=== PATIENT | female | born 1935 | race Caucasian/White ===

== ENCOUNTER 2016-08-03 10:31 | Emergency (ER) | payer OTHER ==
--- NOTE | 2016-08-03 10:43 | CPEKG ---
Heart Rate: 75 RR Interval: 800 P-R Interval: 172 QRSD Interval: 76 QT Interval: 368 QTC Interval: 411 P [place]: 62 QRS [place]: 26 T Wave [place]: -32 EKG Severity - ABNORMAL ECG - EKG Impression: SINUS RHYTHM EKG Impression: CONSIDER ANTEROSEPTAL INFARCT EKG Impression: BORDERLINE T ABNORMALITIES, INFERIOR LEADS Electronically Signed By: Rk Davis 03-Aug-2016 15:38:27
[2016-08-03 10:48] VITALS: RESP 16
[2016-08-03 11:02] LABS: % IMMATURE GRANULYOCYTES 0.4 % (0.0-1.1); ABSOLUTE IMMATURE GRANULOCYTES 0.03 10^3/uL (0.00-0.10); ADD DIFF? NO; ADD MORPH? NO; ADD SCAN? NO; ATYPICAL LYMPHOCYTE FLAG 20 (0-99); FRAGMENT RBC FLAG 0 (0-99); HEMATOCRIT 37.8 % (38.0-47.0); HEMOGLOBIN 13.4 g/dL (12.6-16.3); LEFT SHIFT FLG 0 (0-99); LIPEMIA HEMOLYSIS FLAG 90 (0-99); MEAN CELL HEMOGLOBIN CONCENTR. 35.4 g/dL (32.4-36.7); MEAN CELL VOLUME 90.2 fL (81.5-99.8); MEAN PLATELET VOLUME 9.3 fL (8.7-11.7); PLATELET CLUMPS FLAG 10 (0-99); PLATELET COUNT 255 10^3/uL (150-400); RED BLOOD CELL COUNT 4.19 10^6/uL (4.18-5.33)
[2016-08-03 11:15] LABS: INR 0.88 (0.83-1.16); PROTIME(PATIENT) 11.8 SEC (12.0-15.0)
[2016-08-03 11:16] LABS: APTT 29.7 SEC (23.0-38.0)
[2016-08-03 11:18] LABS: ANION GAP 8 mEq/L (8-16); CALCIUM 9.1 mg/dL (8.5-10.4); CARBON DIOXIDE 27 mEq/l (22-31); CHLORIDE 95 mEq/L (97-110); CREATININE 0.8 mg/dL (0.6-1.0); GLOMERULAR FILTRATION RATE > 60; GLUCOSE 91 mg/dL (70-100); POTASSIUM 4.1 mEq/L (3.5-5.2); SODIUM 130 mEq/L (134-144)
[2016-08-03 11:29] LABS: TROPONIN I < 0.012 ng/mL (0-0.034)
[2016-08-03 11:37] VITALS: O2SAT 94
--- NOTE | 2016-08-03 11:54 | DX ---
Chest, PA and Lateral Views - August 03, 2016, at 11:23 a.m. Clinical History: 80-year-old female with chest pain. Comparison Study: Chest, dated July 27, 2011. Findings: Arthrodesis hardware is seen along the caudal portion of the image involving the lumbar sp ine. There is a mild sigmoid-shaped thoracic scoliosis. Telemetry monitoring lead lines are present. The patient has had a prior augmentation mammoplasty, and there is fibrous capsular calcification on the right. There is mural calcification of the aortic knob. The cardiac size is within normal limits. There is a calcified granulomata at the left hilum and at the inferomedial right lung base. There is a mild pectus excavatum deformity. The thoracic vertebral body heights are maintained. There is some linear scarring at the lateral left lung base, which is unchanged from 2011. Impression: Radiographically similar to July 27, 2011.
[2016-08-03 12:37] VITALS: BP 126/75; PULSE 67; TEMP 97.5
--- NOTE | 2016-08-03 12:37 | UCPHY ---
H & P Patient Type: Established Chief Complaint Nursing Narrative: C/o epigastric/midsternal chest pain that radiates to back starting last night at 2100. Denies SOB. Pt states she has been having high BP over last week and is being treated by Dr. Aaron. Time Seen by Provider: 08/03/16 10:50 HPI/ROS: This patient had an episode of chest pain last night that prompts her visit this morning. She explains that while at rest she developed substernal chest pressure that radiated to her back became moderate to severe. It was associated with nausea and no other associated symptoms. During the episode which started at rest she noted no exacerbating or alleviating factors. The symptoms resolved without specific intervention. She has had no symptoms since but after mentioning the episode to her friend-a retired RN she decided to come in for further evaluation. At the moment she has no chest pain or other acute symptoms. However she did notice that she has hypertension with a blood pressure of 172/98 at home. She took a dose of Valium as well as reporting compliance with her antihypertensives-hydrochlorothiazide 12.5 a day, Diovan 320 mg a day and atenolol 100 mg a day. She explains that she often has improvement in her hypertension with Valium because she reports that she gets anxious at times. ROS: She reports no fevers chills or other constitutional symptoms. HEENT: No headache or other complaints pulmonary: No pleuritic pain, cough or shortness of breath. Cardiovascular: She reports no heart palpitations or lightheadedness. No peripheral edema. GI: No nausea vomiting, 10 point ROS is otherwise negative. Source: Patient Exam Limitations: No limitations - Personal History Current Tetanus Diphtheria and Acellular Pertussis (TDAP): Yes Tetanus Vaccine Date: within 10 years - Medical/Surgical History PMH: She reports having had 2 similar episodes in her life 1 at age 51 and 1 5 years ago in her was dying. She had a negative workup [address] Dejesus of Cardiology including a negative stress test and normal echo at that time per her report. Hx Asthma: No Hx Chronic Respiratory Disease: No Hx Diabetes: Yes Hx Cardiac Disease: Yes Hx Renal Disease: No Hx Cirrhosis: No Hx Alcoholism: No Hx HIV/AIDS: No Hx Splenectomy or Spleen Trauma: No Other PMH: hypothyroid, HTN, chronic pain, L3-L4 FUSION, RHIP REPLACED, breast infection, lyme disease, arthritis - Family History Significant Family History: No pertinent family hx - Social History Smoking Status: Never smoked Alcohol Use: None Drug Use: None - Physical Exam Exam: General Appearance: Pleasant elderly female appears younger than her stated age. Alert, no distress. Eyes: Pupils equal and round no pallor or injection. ENT, Mouth: Mucous membranes moist. Respiratory: There are no retractions, lungs are clear to auscultation. Cardiovascular: Regular rate and rhythm. No murmur gallop rub. No peripheral edema. No JVD. Gastrointestinal: Abdomen is soft and nontender, no masses, bowel sounds normal. Neurological: Alert with no focal deficits. Skin: Warm and dry, no rashes. Musculoskeletal: Neck is supple nontender. Extremities are symmetrical, full range of motion. Psychiatric: Mood and affect normal. DIFFERENTIAL DIAGNOSIS: After history and physical exam differential diagnosis was considered for coronary syndrome, thoracic aneurysm or dissection, pneumonia , pneumothorax, GERD Constitutional: Initial Vital Signs Temperature (C) 36.8 C 08/03/16 10:44 Heart Rate 78 08/03/16 10:44 Respiratory Rate 16 08/03/16 10:44 Blood Pressure 159/106 H 08/03/16 10:44 O2 Sat (%) 95 08/03/16 10:44 O2 Delivery Mode Room Air Allergies/Adverse Reactions: aspirin [Aspirin] Allergy (Severe, Verified 08/03/16 10:51) EYES SWELL,RASH ciprofloxacin [From Cipro] Allergy (Severe, Verified 08/03/16 10:51) HYPERTENSION, CONFUSED ciprofloxacin HCl [From Cipro] Allergy (Severe, Verified 08/03/16 10:51) HYPERTENSION, CONFUSED clindamycin [Clindamycin] Allergy (Severe, Verified 08/03/16 10:51) RED BLOTCHES, DIARRHEA tramadol HCl [From Ultram] Allergy (Severe, Verified 08/03/16 10:51) Vomiting ketorolac tromethamine [From Toradol] Allergy (Intermediate, Verified 08/03/16 10:51) BLOTCHY SKIN, EYES SWELL Penicillins Allergy (Intermediate, Verified 08/03/16 10:51) EYES SWELL, RASH vancomycin Allergy (Intermediate, Verified 08/03/16 10:51) flushing, urticaria ertapenem [Ertapenem] Allergy (Unknown, Verified 08/03/16 10:51) Unknown ANTI-INFLAMATORY Allergy (Severe, Uncoded 08/03/16 10:51) HYPERTENSION GOOSEBERRIES Allergy (Intermediate, Uncoded 08/03/16 10:51) Vomiting steroids Allergy (Intermediate, Uncoded 08/03/16 10:51) HIGH BP Home Medications: Medication Instructions Recorded Atenolol mg PO DAILY 01/26/16 Diovan mg PO DAILY 01/26/16 Hydrochlorothiazide mg PO 01/26/16 [place] 5/325 (RX) 01/26/16 Synthroid mcg PO DAILY 01/26/16 Valium 01/26/16 Bone-Up 08/03/16 Fiber 08/03/16 Probiotic 08/03/16 Refresh Plus 08/03/16 Stool Softner 08/03/16 VITAMIN B COMP W-C 08/03/16 Medical Decision Making - Diagnostics EKG Interpretation: 12 lead EKG performed at 10:41 a.m. reveals sinus rhythm at 75 Intervals: Normal throughout [place]: Normal throughout ST segments: Borderline T inversions in lead 3 and AVF. Isolated 0.[address]- elevation in V2. However when compared to prior EKG dated July 28, 2011 appreciate no interval change. Overall assessment sinus rhythm with no evidence of acute ischemic changes or infarct. Imaging: Chest x-ray: No acute abnormalities. Chest x-ray is read by the radiologist and also reviewed the film. ED Course/Re-evaluation: IV, monitor, patient remained stable without symptoms while here. Her initial hypertension resolved spontaneously without further intervention. CBC is unremarkable. Electrolytes notable only for mild hyponatremia. Troponin is normal. D-dimer is negative. Discussion: After workup, no evidence of PE, pneumothorax, pneumonia, acute coronary syndrome. Cause of her chest pain last night is unclear. I counseled her regarding this. She is uninterested in any further tests. In terms of her hypertension, I recommended that she continue her current plan except that her sodium is borderline low at 130 she may benefit from going back to intermittent hydrochlorothiazide she was taking it every other day before and maintaining normal sodium. Suggested that she continue Valium if needed for intermittent episodes of spiking hypertension associated with anxiety. She will follow up with Dr. Dejesus-cardiology for further evaluation - Data Points Laboratory Results: Laboratory Results 08/03/16 10:40 08/03/16 10:40 08/03/16 10:40 WBC 8.12 10^3/uL (3.80-9.50) RBC 4.19 10^6/uL (4.18-5.33) Hgb 13.4 g/dL (12.6-16.3) Hct 37.8 L % (38.0-47.0) MCV 90.2 fL (81.5-99.8) MCH 32.0 pg (27.9-34.1) MCHC 35.4 g/dL (32.4-36.7) RDW 12.0 % (11.5-15.2) Plt Count 255 10^3/uL (150-400) MPV 9.3 fL (8.7-11.7) Neut % (Auto) 65.4 % (39.3-74.2) Lymph % (Auto) 23.6 % (15.0-45.0) [place] % (Auto) 9.2 % (4.5-13.0) Eos % (Auto) 1.0 % (0.6-7.6) Baso % (Auto) 0.4 % (0.3-1.7) Nucleat RBC Rel Count 0.0 % (0.0-0.2) Absolute Neuts (auto) 5.31 10^3/uL (1.70-6.50) Absolute Lymphs (auto) 1.92 10^3/uL (1.00-3.00) Absolute Monos (auto) 0.75 10^3/uL (0.30-0.80) Absolute Eos (auto) 0.08 10^3/uL (0.03-0.40) Absolute Basos (auto) 0.03 10^3/uL (0.02-0.10) Absolute Nucleated RBC 0.00 10^3/uL (0-0.01) Immature Gran % 0.4 % (0.0-1.1) Immature Gran # 0.03 10^3/uL (0.00-0.10) PT 11.8 L SEC (12.0-15.0) INR 0.88 (0.83-1.16) APTT 29.7 SEC (23.0-38.0) D-Dimer 0.42 ug/mLFEU (0.00-0.50) Sodium 130 L mEq/L (134-144) Potassium 4.1 mEq/L (3.5-5.2) Chloride 95 L mEq/L (97-110) Carbon Dioxide 27 mEq/l (22-31) Anion Gap 8 mEq/L (8-16) BUN 16 mg/dL (7-23) Creatinine 0.8 mg/dL (0.6-1.0) Estimated GFR > 60 Glucose 91 mg/dL (70-100) Calcium 9.1 mg/dL (8.5-10.4) Troponin I < 0.012 ng/mL (0-0.034) Departure - Departure Disposition: Home, Routine, Self-Care Clinical Impression: Chest pain, Hypertension Condition: Good Instructions: Chest Pain (ED), Hypertension (ED) Additional Instructions: Diagnoses: 1. Chest pain - resolved 2. Hypertension 3. Mild Hyponatremia (130) Plan: Go back to intermittent Lisinopril. Continue your atenolol. Continue Diovan. If you're still hypertensive, take Valium as needed Call Dr. Dejesus to arrange a f/u appt. Go to the emergency department for any significant worsening Referrals: Rosa Aaron MD [Primary Care Provider] - As per Instructions - PQRS PQRS Measurement: 134: Depression screening and followup, PRIME MD-PHQ2 (12 years and older) Over the last 2 weeks, how often have you been bothered by any of the following problems? 1. Feeling down, depressed, or hopeless? 2. Little interest or pleasure in doing things? Patient answered no to both 1 and 2 130: Documentation of medications. Reviewed all patient medications, doses, route and frequency. 226: Do you smoke? [No.] 47: 65 and older: Advanced care planning. Patient designates surrogate decision maker as Patient has advanced directive. 51: 18 years old and older with diagnosis of COPD, spirometry performance. NA 52: 18 years old and older with COPD and symptoms of COPD or FEV1<60% predicted prescribed a B Agonist. NA
== END 2016-08-03 12:56 | disposition home or self-care (01) ==
LOC: CED 10:31
DX: R07.9 Chest pain, unspecified (principal); I10 Essential (primary) hypertension; R11.0 Nausea
CPT/HCPCS: 71020; 93005; G0463; 80048-PO; 84484-PO; 85025-PO; 85378-PO; 85610-PO; 85730-PO

== ENCOUNTER 2016-08-30 14:37 | Emergency (ER) | payer OTHER ==
[2016-08-30 14:47] VITALS: BP 168/80; PULSE 74; RESP 18; TEMP 98.1; O2SAT 96
--- NOTE | 2016-08-30 15:21 | EDPHY ---
H & P Time Seen by Provider: 08/30/16 15:02 HPI/ROS: CHIEF COMPLAINT: allergic reaction to cat scratch HISTORY OF PRESENT ILLNESS: Patient is an 81-year-old female who presents to the emergency department after sustaining a scratch from her cat last week. On Wednesday she noticed some redness surrounding the scratch on her left lower leg. She had to go to an appointment on Wednesday at her primary care physician's office and decided to have it checked at urgent care. She was started on antibiotics on . She has taken doxycycline since that time. She continues to have mild redness surrounding the wound. It is not growing in size. She has no fevers or chills. No nausea vomiting. REVIEW OF SYSTEMS: My complete review of systems is negative except as mentioned in the HPI. Past Medical/Surgical History: Hypothyroidism, hypertension, chronic pain, Lyme disease, arthritis Past surgical history: Includes L3-L4 fusion, hip replacement Smoking Status: Never smoked Physical Exam: Vitals noted. Afebrile. GENERAL: Well-appearing, in no acute distress, alert. HEENT: Eyes normal to inspection. RESPIRATORY: No respiratory distress. CVS: well perfused. BACK: Normal to inspection, no CVA tenderness. SKIN: see extremity exam Normal color, no rash, warm, dry. No pallor. EXTREMITIES: patient has mild redness on her the left lower anterior thomas. This is surrounding the scab scratch lauren. There is no fluctuance or palpable mass. There is no streaking up the leg. No calf tenderness. NEURO/PSYCH: Alert and oriented, normal mood and affect, normal motor sensory exam. Constitutional: Initial Vital Signs Temperature (C) 36.7 C 08/30/16 14:46 Heart Rate 74 08/30/16 14:46 Respiratory Rate 18 08/30/16 14:46 Blood Pressure 168/80 H 08/30/16 14:46 O2 Sat (%) 96 08/30/16 14:46 O2 Delivery Mode Room Air Allergies/Adverse Reactions: aspirin [Aspirin] Allergy (Severe, Verified 08/03/16 10:51) EYES SWELL,RASH ciprofloxacin [From Cipro] Allergy (Severe, Verified 08/03/16 10:51) HYPERTENSION, CONFUSED ciprofloxacin HCl [From Cipro] Allergy (Severe, Verified 08/03/16 10:51) HYPERTENSION, CONFUSED clindamycin [Clindamycin] Allergy (Severe, Verified 08/03/16 10:51) RED BLOTCHES, DIARRHEA tramadol HCl [From Ultram] Allergy (Severe, Verified 08/03/16 10:51) Vomiting ketorolac tromethamine [From Toradol] Allergy (Intermediate, Verified 08/03/16 10:51) BLOTCHY SKIN, EYES SWELL Penicillins Allergy (Intermediate, Verified 08/03/16 10:51) EYES SWELL, RASH vancomycin Allergy (Intermediate, Verified 08/03/16 10:51) flushing, urticaria ertapenem [Ertapenem] Allergy (Unknown, Verified 08/03/16 10:51) Unknown levofloxacin [From Levaquin] Allergy (Verified 08/30/16 14:45) ANTI-INFLAMATORY Allergy (Severe, Uncoded 08/03/16 10:51) HYPERTENSION GOOSEBERRIES Allergy (Intermediate, Uncoded 08/03/16 10:51) Vomiting steroids Allergy (Intermediate, Uncoded 08/03/16 10:51) HIGH BP Home Medications: Medication Instructions Recorded Atenolol mg PO DAILY 01/26/16 Diovan mg PO DAILY 01/26/16 Hydrochlorothiazide mg PO 01/26/16 [place] 5/325 (RX) 01/26/16 Synthroid mcg PO DAILY 01/26/16 Valium 01/26/16 Bone-Up 08/03/16 Fiber 08/03/16 Probiotic 08/03/16 Refresh Plus 08/03/16 Stool Softner 08/03/16 VITAMIN B COMP W-C 08/03/16 Cephalexin [Keflex (*)] 500 mg PO QID #7 cap 08/30/16 Fluconazole [Diflucan (*)] 150 mg PO ONCE #1 tab 08/30/16 Medical Decision Making ED Course/Re-evaluation: In the emergency department I discussed possible etiologies with the patient. The patient states she tolerates Keflex well. She was given a prescription for Keflex. Patient requests a prescription for fluconazole. She states she has fungus infection after taking antibiotics. She is given warnings prior to leaving. She will return with worsening symptoms. Differential Diagnosis: My differential includes but is not limited to cellulitis, abscess, cat scratch fever, foreign body Departure - Departure Disposition: Home, Routine, Self-Care Clinical Impression: Cellulitis Qualifiers: Site of cellulitis: extremity Site of cellulitis of extremity: lower extremity Laterality: left Qualifier Code: (L03.116) Cellulitis of left lower limb Condition: Good Instructions: Cellulitis (ED) Additional Instructions: Take her antibiotics as directed. Return with worsening symptoms. Referrals: Rosa Aaron MD [Medical Doctor] - 3-4 days, if not improved Prescriptions: Fluconazole [Diflucan (*)] 150 mg PO ONCE #1 tab Cephalexin [Keflex (*)] 500 mg PO QID #7 cap
== END 2016-08-30 15:34 | disposition home or self-care (01) ==
DX: L03.116 Cellulitis of left lower limb (principal); I10 Essential (primary) hypertension

== ENCOUNTER 2016-09-27 18:05 | Emergency (ER) | payer OTHER ==
[2016-09-27 18:21] VITALS: BP 165/75; PULSE 78; RESP 18; TEMP 97.3; O2SAT 96
[2016-09-27] MEDS ORDERED: LETS SOLN TOPICAL 1 EA SYR TP ONE (18:39)
--- NOTE | 2016-09-27 19:14 | UCPHY ---
H & P Time Seen by Provider: 09/27/16 18:34 Patient Type: Established HPI/ROS: This patient presents with a left leg wound from bumping into the a sharp corner of wooden table shortly prior to arrival. She reports mild pain from the skin wound. There is mild bleeding that slowed with direct pressure. She cleaned with water prior to arrival. She is concerned about potential cellulitis she has had wound infections in the past. ROS: No bony pain. No difficulty walking since the injury. No other injuries associated with this. No numbness or tingling. 5 point ROS is otherwise negative. Past Medical/Surgical History: Many antibiotic allergies Previous cellulitis from wounds. Smoking Status: Never smoked Physical Exam: Physical Exam Vital signs are normal. General: No acute distress HEENT: Atraumatic. Eyes: Pupils equal and react to light. Extraocular motions are intact. Lungs: No respiratory distress. Cardiac: Brisk capillary refill is intact throughout. Pulses are 2+ and symmetric in the affected extremity. Skin: No rash or pallor. Patient has a 3 x 3 cm partial-thickness skin avulsion with a nonviable skin flap. There are no full-thickness components this wound. There is minimal bleeding. Extremities: Atraumatic except for left leg there is no underlying bony tenderness or hematoma. Neuro: Alert and oriented x3 with no sensorimotor deficits. Constitutional: Initial Vital Signs Temperature (C) 36.3 C 09/27/16 18:18 Heart Rate 78 09/27/16 18:18 Respiratory Rate 18 09/27/16 18:18 Blood Pressure 165/75 H 09/27/16 18:18 O2 Sat (%) 96 09/27/16 18:18 O2 Delivery Mode Room Air Allergies/Adverse Reactions: aspirin [Aspirin] Allergy (Severe, Verified 09/27/16 18:17) EYES SWELL,RASH ciprofloxacin [From Cipro] Allergy (Severe, Verified 09/27/16 18:17) HYPERTENSION, CONFUSED ciprofloxacin HCl [From Cipro] Allergy (Severe, Verified 09/27/16 18:17) HYPERTENSION, CONFUSED clindamycin [Clindamycin] Allergy (Severe, Verified 09/27/16 18:17) RED BLOTCHES, DIARRHEA tramadol HCl [From Ultram] Allergy (Severe, Verified 09/27/16 18:17) Vomiting ketorolac tromethamine [From Toradol] Allergy (Intermediate, Verified 09/27/16 18:17) BLOTCHY SKIN, EYES SWELL Penicillins Allergy (Intermediate, Verified 09/27/16 18:17) EYES SWELL, RASH vancomycin Allergy (Intermediate, Verified 09/27/16 18:17) flushing, urticaria ertapenem [Ertapenem] Allergy (Unknown, Verified 09/27/16 18:17) Unknown doxycycline Allergy (Verified 09/27/16 18:17) levofloxacin [From Levaquin] Allergy (Verified 09/27/16 18:17) ANTI-INFLAMATORY Allergy (Severe, Uncoded 09/27/16 18:17) HYPERTENSION GOOSEBERRIES Allergy (Intermediate, Uncoded 09/27/16 18:17) Vomiting steroids Allergy (Intermediate, Uncoded 09/27/16 18:17) HIGH BP Home Medications: Medication Instructions Recorded Atenolol mg PO DAILY 01/26/16 Diovan mg PO DAILY 01/26/16 Hydrochlorothiazide mg PO 01/26/16 [place] 5/325 (RX) 01/26/16 Synthroid mcg PO DAILY 01/26/16 Valium 01/26/16 Bone-Up 08/03/16 Fiber 08/03/16 Probiotic 08/03/16 Refresh Plus 08/03/16 Stool Softner 08/03/16 VITAMIN B COMP W-C 08/03/16 Cephalexin [Keflex (*)] 500 mg PO QID #7 cap 08/30/16 Fluconazole [Diflucan (*)] 150 mg PO ONCE #1 tab 08/30/16 MDM/Departure - MDM Medications Given: Discontinued Medications Tetracaine/Epinephrine/Lidocaine (Lets Soln Topical) 1 ea TP EDNOW ONE Stop: 09/27/16 18:40 Last Admin: 09/27/16 18:49 Dose: 1 ea ED Course/Re-evaluation: Wound care: Let solution anesthesia scrubbed the wound with baby shampoo and saline. I then used tissue scissors to remove the nonviable skin flap. Patient tolerated this well. She is then treated with a Tegaderm. I counseled regarding wound care. Patient requested prophylactic antibiotics by advised against this given her many antibiotic allergies - Depart Disposition: Home, Routine, Self-Care Clinical Impression: Leg wound, left Qualifiers: Encounter type: initial encounter Qualified Code(s): S81.802A - Unspecified open wound, left lower leg, initial encounter Condition: Good Instructions: Acute Wounds (ED) Additional Instructions: Diagnosis: Leg wound Plan: Keep the Tegaderm in place for the next few days. OK get this wet. For few days remove the dressing gently clean with warm soapy water then reapply similar dressing available at pharmacies. Return if he develops redness or any other concerns for infection. Referrals: Rosa Aaron MD [Primary Care Provider] - As per Instructions - PQRS PQRS Measurement: 134: Depression screening and followup, PRIME MD-PHQ2 (12 years and older) Over the last 2 weeks, how often have you been bothered by any of the following problems? 1. Feeling down, depressed, or hopeless? 2. Little interest or pleasure in doing things? Patient answered no to both 1 and 2 130: Documentation of medications. Reviewed all patient medications, doses, route and frequency. 226: Do you smoke? [No.] 47: 65 and older: Advanced care planning. Patient designates surrogate decision maker has an advanced directive 51: 18 years old and older with diagnosis of COPD, spirometry performance. NA 52: 18 years old and older with COPD and symptoms of COPD or FEV1<60% predicted prescribed a B Agonist. NA
== END 2016-09-27 19:27 | disposition home or self-care (01) ==
LOC: CED 18:05
DX: S81.802A Unspecified open wound, left lower leg, initial encounter (principal); Y92.89 Other specified places as the place of occurrence of the external cause; W22.03XA Walked into furniture, initial encounter
CPT/HCPCS: 11042-PO; 99213-PO; G0463-PO

== ENCOUNTER → 2017-12-28 | Outpatient (CLI) | payer OTHER | LOC: BHFA 10:15 | PROVIDERS: ATTEND Physician Assistant Medical | DX: R07.9 Chest pain, unspecified (principal); I10 Essential (primary) hypertension ==

== ENCOUNTER → 2017-12-30 | Outpatient (CLI) | payer OTHER | LOC: BHFA 13:00 | PROVIDERS: ATTEND Internal Medicine Cardiovascular Disease | DX: R07.9 Chest pain, unspecified (principal) | CPT/HCPCS: 78452; 93017; A9500; J2785 ==

== ENCOUNTER 2018-05-11 12:31 | Emergency (ER) | payer OTHER ==
[2018-05-11] MEDS ORDERED: TDAP ADULT 0.5 ML INJ (BOOSTRIX) IM ONE (13:06)
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
[2018-05-11 14:21] VITALS: BP 148/100
== END 2018-05-11 14:20 | disposition home or self-care (01) ==
LOC: CED 12:31
DX: S81.811A Laceration without foreign body, right lower leg, initial encounter (principal); Z23 Encounter for immunization; W55.03XA Scratched by cat, initial encounter; Z88.0 Allergy status to penicillin; Z88.1 Allergy status to other antibiotic agents

== ENCOUNTER → 2018-07-27 | Outpatient (CLI) | payer OTHER | LOC: BMCIMAGING 14:37 | PROVIDERS: ATTEND Internal Medicine | DX: Z12.31 Encounter for screening mammogram for malignant neoplasm of breast (principal) ==